=== PATIENT | male | born 1980 | race African-American/Black ===

== ENCOUNTER → 2016-07-27 | Outpatient (CLI) | payer OTHER ==
[~2016-07-27] MED LIST: NO HOME MEDS; PAXI20TA3 PO; TRAZ50TA2 PO
--- NOTE | 2016-07-27 19:04 | REP ---
PA and lateral chest: Comparison 08/14/2011. The lung mackey are clear. The cardiac size is normal The gordon, mediastinum, and bony thorax are unremarkable. Impression: Negative PA and lateral chest. There is no interval change. Signed by Cosme Garcia MD 07/27/2016 06:55 P
--- NOTE | 2016-07-28 06:12 | ECGEPIP ---
Stationary ECG Study [facility] Test Date: 2016-07-27 Pat Name: CHEPE RUIZ Department: Room: - Gender: M [employer] Assistant: : 1980 Requested By: Lance Lucero Order Number: [id number] Reading MD: Niya Bertrand Measurements Intervals [place]vin Rate: 73 P: 73 ND: 138 QRS: 81 QRSD: 101 T: 20 QT: 360 QTc: 399 Interpretive Statements SINUS RHYTHM NONSPECIFIC T-WAVE ABNORMALITY NO PRIOR Electronically Signed On 07-28-2016 6:11:59 EDT by Niya Bertrand
== END ==
LOC: M EKG 17:20
PROVIDERS: ATTEND Family Medicine Addiction Medicine
DX: R07.89 Other chest pain (principal)

== ENCOUNTER 2016-08-25 23:46 | Emergency (ER) | payer MEDICAID, OTHER, SELFPAY ==
[~2016-08-25] VITALS: Ht 182.9 cm; Wt 60.1 kg
[2016-08-25] MEDS ORDERED: SERO50TA PO (23:55)
[2016-08-26] MEDS ORDERED: NAPR500T PO (06:25)
[2016-08-26] MEDS ORDERED: ROBA500T PO (06:25)
[2016-08-26] MEDS ORDERED: TRAM50TA2 PO (06:25)
[2016-08-26] MEDS ORDERED: NAPROXEN 250 MG TAB PO ONE (06:30)
[2016-08-26 06:33] VITALS: BP 118/70
[2016-08-26] MEDS ORDERED: traMADol 50 MG TAB (BULK 4 TAB ED) PO ONE (07:00)
== END 2016-08-26 06:35 | disposition home or self-care (01) ==
LOC: M ED 23:46
DX: M54.6 Pain in thoracic spine (principal); Z79.899 Other long term (current) drug therapy; Z91.030 Bee allergy status; Z91.013 Allergy to seafood

== ENCOUNTER → 2016-09-07 | Outpatient (CLI) | payer MEDICAID, OTHER ==
[~2016-09-07] MED LIST changes: +CLOTR1CR TOP; +NAPR500T PO; +PRAZ1CAP; +PRED10TA2 PO; +ROBA500T PO; +SERO50TA PO; +TRAM50TA2 PO
[2016-09-07 15:11] LABS: BASO % 0.6 % (0.0-1.0); EOS # 0.2 K/mm3 (0.0-0.50); EOS % 5.6 % (0.0-3.0); LARGE UNSTAINED CELL # 0.1 K/mm3 (0.0-0.4); LARGE UNSTAINED CELL % 2.8 % (0.0-4.0); LYMPH # 1.5 K/mm3 (1.5-4.5); LYMPH % 46.9 % (24.0-44.0); MEAN CORPUSCULAR HEMOGLOBIN 32.9 pg (27.0-33.0); MEAN CORPUSCULAR HGB CONC 32.6 g/dl (32.0-36.5); MONO # 0.3 K/mm3 (0.0-0.8); MONO % 7.9 % (0.0-5.0); NEUTROPHILS # 1.1 K/mm3 (1.8-7.7); NEUTROPHILS % 36.3 % (36.0-66.0); PLATELET COUNT, AUTOMATED 331 k/mm3 (150-450); RED CELL DISTRIBUTION WIDTH 11.7 % (11.5-14.5); WHITE BLOOD COUNT 3.1 K/mm3 (4.0-10.0)
[2016-09-07 15:57] LABS: ALBUMIN 4.3 GM/DL (3.2-5.2); ALBUMIN/GLOBULIN RATIO 1.43 (1.00-1.93); ALKALINE PHOSPHATASE 47 U/L (45-117); ALT/SGPT 19 U/L (12-78); ANION GAP 0 MEQ/L (8-16); AST/SGOT 14 U/L (15-37); BILIRUBIN,TOTAL 0.8 MG/DL (0.2-1.0); BLOOD UREA NITROGEN 11 MG/DL (7-18); CALCIUM LEVEL 8.9 MG/DL (8.5-10.1); CARBON DIOXIDE LEVEL 35 MEQ/L (21-32); CHLORIDE LEVEL 103 MEQ/L (98-107); CHOLESTEROL LEVEL 170 MG/DL (<200); CREATININE FOR GFR 1.09 MG/DL (0.70-1.30); GLOMERULAR FILTRATION RATE > 60.0 (>60); GLUCOSE, FASTING 70 MG/DL (70-105); POTASSIUM SERUM 4.4 MEQ/L (3.5-5.1); SODIUM LEVEL 138 MEQ/L (136-145); TOTAL PROTEIN 7.3 GM/DL (6.4-8.2); TRIGLYCERIDES LEVEL 131 MG/DL (<150)
== END ==
LOC: M LAB 14:26
PROVIDERS: ATTEND Family Medicine Addiction Medicine
DX: Z00.01 Encounter for general adult medical examination with abnormal findings (principal)

== ENCOUNTER 2016-12-21 16:17 | Emergency (ER) | payer MEDICAID, OTHER ==
[~2016-12-21] VITALS: Ht 175.3 cm; Wt 65.9 kg
[~2016-12-21 16:17] MED LIST changes: -CLOTR1CR TOP; -PRAZ1CAP; -PRED10TA2 PO
[2016-12-21] MEDS ORDERED: PRAZ1CAP (16:30)
[2016-12-21] MEDS ORDERED: PRED10TA2 PO (17:46)
[2016-12-21] MEDS ORDERED: CLOTR1CR TOP (17:46)
[2016-12-21 18:13] VITALS: BP 120/73
== END 2016-12-21 18:15 | disposition home or self-care (01) ==
LOC: M ED 16:17
DX: B35.6 Tinea cruris (principal); T78.40XA Allergy, unspecified, initial encounter; W54.8XXA Other contact with dog, initial encounter; Y92.9 Unspecified place or not applicable; Y93.9 Activity, unspecified; Y99.9 Unspecified external cause status; F41.9 Anxiety disorder, unspecified; F32.9 Major depressive disorder, single episode, unspecified; F17.200 Nicotine dependence, unspecified, uncomplicated; Z79.899 Other long term (current) drug therapy; Z91.030 Bee allergy status; Z91.013 Allergy to seafood

== ENCOUNTER 2018-01-17 03:21 | Emergency (ER) | payer SELFPAY, OTHER | END 2018-01-17 05:15 | disposition home or self-care (01) | LOC: M ED 03:21 | DX: M25.512 Pain in left shoulder (principal); F17.200 Nicotine dependence, unspecified, uncomplicated; Z91.030 Bee allergy status; Z91.013 Allergy to seafood | CPT/HCPCS: 73020 ==

== ENCOUNTER 2018-03-19 15:33 | Emergency (ER) | payer SELFPAY ==
[~2018-03-19] VITALS: Ht 177.8 cm; Wt 61.0 kg
[~2018-03-19 15:33] MED LIST changes: +CLOTR1CR TOP; +MOTR200T44 PO; +NAPR-50 PO; -NAPR500T PO; +PRAZ1CAP; +PRED10TA2 PO
[2018-03-19 16:15] LABS: BASO % 0.2 % (0.0-1.0); EOS # 0.2 10^3/uL (0.0-0.50); EOS % 4.9 % (0.0-3.0); HEMATOCRIT 38.9 % (42.0-52.0); HEMOGLOBIN 13.1 g/dl (13.5-17.5); LYMPH # 1.3 10^3/uL (1.5-4.5); LYMPH % 31.1 % (24.0-44.0); MEAN CORPUSCULAR HEMOGLOBIN 32.5 pg (27.0-33.0); MEAN CORPUSCULAR HGB CONC 33.7 g/dl (32.0-36.5); MEAN CORPUSCULAR VOLUME 96.5 fl (80.0-96.0); MONO # 0.4 10^3/uL (0.0-0.8); MONO % 8.9 % (0.0-5.0); NEUTROPHILS # 2.2 10^3/uL (1.8-7.7); NEUTROPHILS % 54.4 % (36.0-66.0); PLATELET COUNT, AUTOMATED 277 10^3/uL (150-450); RED BLOOD COUNT 4.03 10^6/uL (4.30-6.10); WHITE BLOOD COUNT 4.1 10^3/uL (4.0-10.0)
[2018-03-19 16:40] LABS: ALBUMIN 4.4 GM/DL (3.2-5.2); ALT/SGPT 19 U/L (12-78); BILIRUBIN,DIRECT 0.2 MG/DL (0.0-0.2); BILIRUBIN,TOTAL 0.6 MG/DL (0.2-1.0); BLOOD UREA NITROGEN 15 MG/DL (7-18); CALCIUM LEVEL 9.1 MG/DL (8.5-10.1); CARBON DIOXIDE LEVEL 28 MEQ/L (21-32); CHLORIDE LEVEL 105 MEQ/L (98-107); CREATININE FOR GFR 0.92 MG/DL (0.70-1.30); GLOMERULAR FILTRATION RATE > 60.0 (>60); GLUCOSE, FASTING 92 MG/DL (70-100); POTASSIUM SERUM 4.4 MEQ/L (3.5-5.1); SODIUM LEVEL 139 MEQ/L (136-145); TOTAL PROTEIN 7.3 GM/DL (6.4-8.2)
[2018-03-19] MEDS ORDERED: MIRA3350 PO (17:11)
[2018-03-19] MEDS ORDERED: REGL10TA6 PO (17:11)
[2018-03-19 17:21] VITALS: BP 118/80
== END 2018-03-19 17:23 | disposition home or self-care (01) ==
LOC: M ED 15:33
DX: K59.00 Constipation, unspecified (principal); D64.9 Anemia, unspecified; R11.0 Nausea; F41.9 Anxiety disorder, unspecified; F32.9 Major depressive disorder, single episode, unspecified; F17.290 Nicotine dependence, other tobacco product, uncomplicated; Z91.030 Bee allergy status; Z91.013 Allergy to seafood